=== PATIENT | male | born 1970 | race Hispanic/Latino ===

== ENCOUNTER 2017-07-04 08:52 | Day surgery (SDC) | payer BC ==
[2017-06-25 10:38] VITALS: BMI 28.4
[~2017-07-04 08:52] MED LIST: Bupivacaine HCl 0.25% PF (10 ml) Inj ONE; Lidocaine/Epinephrine 1% 1:100000 10 ML IJ ONE
[2017-07-04] MEDS ORDERED: Bupivacaine HCl 0.25% PF (10 ml) Inj ONE ×2 (10:35)
[2017-07-04] MEDS ORDERED: ceFAZolin IV 2 gm in Dextrose 2 GM/50 ML BAG IVPB ONE (10:36)
[2017-07-04] MEDS ORDERED: Midazolam 2 MG/2 ML VIAL ONE (10:54)
[2017-07-04] MEDS ORDERED: Propofol 10 mg/ml Inj (20 ML) ONE (10:55)
[2017-07-04] MEDS ORDERED: Rocuronium 10 mg/ml (5 ml) ONE ×2 (10:55→11:30)
[2017-07-04] MEDS ORDERED: Succinylcholine Chloride 20 mg/ml Syr (5 ml) IV ONE (10:55)
[2017-07-04] MEDS ORDERED: Neostigmine Methylsulfate 3mg/3ml Syringe IV ONE (13:52)
--- NOTE | 2017-07-04 14:11 | PCM.SURG1 ---
Surgeon's Initial Post Op Note - Surgeon's Notes Surgeon: Dr. Stephenson Assistant Softball Coach: Merchant [id number], Jaxon OCONNOR Type of Anesthesia: General Endo Pre-Operative Diagnosis: Left Fentral (spigelian) hernia Operative Findings: multiple adhesions w/ mesentery stuck to the anterior abdominal wall. for detailed op findings, see op note Post-Operative Diagnosis: as above Operation Performed: Robotic spigelian left ventral hernia with mesh; lysis of adhesions Specimen/Specimens Removed: Hernia sac x 3 Estimated Blood Loss: EBL {In ML}: 5 Blood Products Given: N/A Drains Used: No Drains Post-Op Condition: Good Date of Surgery/Procedure: 07/04/17 Time of Surgery/Procedure: 14:11
[2017-07-04] MEDS ORDERED: Oxycodone/Acetaminophen 5/325 mg Tab PO ONE (14:30)
[2017-07-04] MEDS: HYDROmorphone 0.5 mg/0.5 ml ISec IVP PRN ×3 (14:30→15:45)
[2017-07-04 17:07] VITALS: RESP 16
[2017-07-04 18:15] VITALS: BP 114/77; PULSE 74; TEMP 98.9; O2SAT 97
--- NOTE | 2017-07-07 03:25 | OP ---
PROCEDURE DATE: 07/04/2017 PREOPERATIVE DIAGNOSES: 1. Ventral spigelian hernia. 2. Status post open umbilical hernia repair with a possible postoperative adhesion. POSTOPERATIVE DIAGNOSES: 1. Ventral spigelian hernia. 2. Status post open umbilical hernia repair with a possible postoperative adhesion. PROCEDURES: 1. Robotic ventral spigelian hernia repair with a mesh. 2. Laparoscopic extensive lysis of adhesions. 3. Bilateral laparoscopic TAP block placement. SURGEON: Feroz Stephenson MD TYPE OF ANESTHESIA: General endotracheal tube anesthesia. ESTIMATED BLOOD LOSS: Around 20 mL. DRAIN: None. PATHOLOGY: The hernial content and sac was sent for Pathology. COMPLICATIONS: None. INTRAOPERATIVE FINDINGS: The patient had extensive upper abdominal and mid abdominal omental adhesion due to the previous open umbilical hernia repair, and patient also had a spigelian hernia on the left side and the patient had omentum as well as the fat was protruding into the hernia sac. DESCRIPTION OF PROCEDURE: On intraoperative steps, this is a 46-year-old male who was diagnosed with spigelian hernia on the left side, and the patient was consented for the robotic ventral spigelian hernia repair with a mesh with lysis of adhesion. The patient was brought to the OR, placed supine on an operating table. After induction of general anesthesia, the abdomen was prepped and draped in the usual sterile fashion. The Khalil catheter and NG tube was placed. The left upper quadrant incision was made using the Visiport technique. Peritoneal cavity was entered. Pneumo was cerated. Another three 8-mm ports were placed in the midline on the right lower quadrant as well as right upper quadrant and robot was brought in. Camera arm as well as arm 1 and arm 2 were docked first with laparoscope with LigaSure extensive lysis of adhesion was done of the omentum in the upper abdominal wall as well as in the mid abdominal wall where the omentum was firmly adhesed and approximately 20 to 30 minutes of time was spent for the proper lysis of adhesion and proper hemostasis. After that the robot was brought in, camera arm as well as arm 1 and arm 2 was docked and the hernial content was reduced back into the peritoneal cavity. The sac was resected, and defect was closed with #1 Prolene V-Loc suture. The epigastric artery was secured and was mobilized completely to avoid injury and two-layer repair was done. After that 6 x 7.5 cm ProGrip mesh was placed and mesh was implanted. The sublay placement of mesh was done and the peritoneum was dissected inferiorly, superiorly, medially, laterally and after proper placement of the mesh, the peritoneum was sutured back and all instrument was taken out and all the port was taken out under vision after undocking the robot. Now, the laparoscopic TAP block was given before removing the port bilaterally. The 30:30 mL of Marcaine was injected in the transverse abdominis muscles and after proper TAP block, all the port was taken out under vision. The umbilical port site was closed with 0-prolene interrupted suture and subcu with 2-0 Vicryl, and now all the ports are done, the skin with 4-0 Monocryl and dry sterile dressing was applied. The patient tolerated the procedure well. Count of the instrument and gauze was correct. There was no apparent complication. The patient was extubated in the OR, sent to the postanesthesia care unit in stable condition. Feroz Stephenson MD [facility]
== END 2017-07-04 18:13 | disposition home or self-care (01) ==
LOC: C.SDS 08:52
PROVIDERS: ATTEND Surgery Surgical Critical Care
DX: K43.9 Ventral hernia without obstruction or gangrene (principal); K66.0 Peritoneal adhesions (postprocedural) (postinfection); E78.00 Pure hypercholesterolemia, unspecified; F17.210 Nicotine dependence, cigarettes, uncomplicated
CPT/HCPCS: 49653; J0690; J1170; J1885; J2001; J2250; J2405; J2704; J2710; J3010